=== PATIENT | female | born 1995 | race Caucasian/White ===

== ENCOUNTER 2019-04-03 09:29 | Emergency (ER) | payer OTHER ==
[~2019-04-03] VITALS: Ht 152.4 cm; Wt 80.0 kg
[2019-04-03 09:31] VITALS: BP 121/73
== END 2019-04-03 11:54 | disposition home or self-care (01) ==
LOC: ED 11:45
DX: O03.9 Complete or unspecified spontaneous abortion without complication (principal)
CPT/HCPCS: 36415; 76801; 81001; 84702; 85025; 86901; 99284